=== PATIENT | male | born 1960 | race Caucasian/White ===

== ENCOUNTER 2019-02-08 08:08 | Emergency (ER) | payer OTHER ==
[2019-02-08 08:48] VITALS: TEMP 96.8; O2SAT 96
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
[2019-02-08] MEDS: KETOROLAC TROMETHAMINE INJ 30 MG/ML VIAL IM ONE (10:14)
[2019-02-08] MEDS: traMADol HCL 50 MG TAB PO ONE (10:15)
[2019-02-08 10:36] VITALS: BP 120/75
== END 2019-02-08 10:39 | disposition home or self-care (01) ==
LOC: ER 08:08
DX: S20.212A Contusion of left front wall of thorax, initial encounter (principal); S46.211A Strain of muscle, fascia and tendon of other parts of biceps, right arm, initial encounter; S16.1XXA Strain of muscle, fascia and tendon at neck level, initial encounter; R51 Headache; R06.2 Wheezing; J32.2 Chronic ethmoidal sinusitis; Z87.891 Personal history of nicotine dependence; V49.49XA Driver injured in collision with other motor vehicles in traffic accident, initial encounter; Y92.410 Unspecified street and highway as the place of occurrence of the external cause
CPT/HCPCS: 36415; 70450; 71046; 72125; 73060; 74019; 80053; 81001; 82550; 82553; 84484; 85025; J1885